=== PATIENT | female | born 1980 | race Caucasian/White ===

== ENCOUNTER 2020-09-17 11:30 | Emergency (ER) | payer BC ==
[~2020-09-17] VITALS: Ht 172.7 cm; Wt 95.8 kg
--- NOTE | 2020-09-17 11:59 | ED Cough/URI ---
General Chief Complaint: Cough/Cold/Flu Symptoms Stated Complaint: SOB | COUGHING Source: patient Exam Limitations: no limitations History of Present Illness Date Seen by Provider: Sep 17, 2020 Time Seen by Provider: 11:48 Initial Comments 40-year-old female presents with complaint of shortness of air for the past 3 hours. States that she was eating a smoothie from a local establishment and began to feel short of air shortly afterwards. She believes she may have had some soy protein, which she has an allergy to. She has taken 325 mg Benadryl tablets. She denies any face, lip, mouth or tongue swelling. She feels tightness in her chest without wheezing and persistent cough. She has had similar reactions in the past. 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 She does carry an EpiPen, although she has never had an episode of anaphylaxis. She denies any recent illness, fever chills or concern of COVID-19. Allergies and Home Medications Allergies Coded Allergies: cabbage (Verified Allergy, Unknown, 09/17/20) coconut (Verified Allergy, Unknown, 09/17/20) gluten (Verified Allergy, Unknown, 09/17/20) peanut (Verified Allergy, Unknown, 09/17/20) soy (Verified Allergy, Unknown, 09/17/20) squash (Verified Allergy, Unknown, 09/17/20) Uncoded Allergies: Chicken (Allergy, Unknown, 09/17/20) Dairy (Allergy, Unknown, 09/17/20) Home Medications Albuterol Sulfate 1 Puff Puff, 2 PUFF IH Q4H 1 PUFF = 90 MCG Prescribed by: JARAD TINEO on 09/17/20 1201 Patient Home Medication List Home Medication List Reviewed: Yes Review of Systems Review of Systems Constitutional: see HPI; No fever, No malaise, No weakness EENTM: no symptoms reported Respiratory: see HPI, cough; No hemoptysis, No orthopnea; short of breath; No stridor, No wheezing Cardiovascular: No chest pain, No edema, No palpitations Gastrointestinal: No abdominal pain, No nausea, No vomiting Musculoskeletal: No back pain, No joint pain Skin: No change in color, No lesions, No lumps, No rash Psychiatric/Neurological: Anxiety; Denies Headache, Denies Numbness, Denies Paresthesia, Denies Weakness Past Jzdzhlx-Gcktri-Gtbqep Hx Past Med/Social Hx: Reviewed Nursing Past Med/Soc Hx Physical Exam Vital Signs - First Documented 09/17/20 11:35 O2 Delivery Room Air Capillary Refill : Height: '" Weight: lbs. oz. kg; BMI Method: General Appearance: WD/WN, no apparent distress; No mild distress Eyes: Bilateral Eye Normal Inspection, Bilateral Eye PERRL, Bilateral Eye EOMI HEENT: PERRL/EOMI, normal ENT inspection, pharynx normal Neck: non-tender, full range of motion, supple, normal inspection Respiratory: chest non-tender, lungs clear, normal breath sounds, no respiratory distress, no accessory muscle use Cardiovascular: regular rate, rhythm, no edema, no gallop, no JVD Gastrointestinal: normal bowel sounds, non tender, soft, no organomegaly, no p ulsatile mass Extremities: normal range of motion, non-tender, no pedal edema Neurologic/Psychiatric: no motor/sensory deficits, alert, normal mood/affect, oriented x 3 Skin: normal color, warm/dry; No cyanosis, No diaphoresis, No ecchymosis, No mottled, No pallor, No rash Progress/Results/Core Measures Suspected Sepsis SIRS Temperature: Pulse: Respiratory Rate: Blood Pressure / Mean: Results/Orders My Orders Orders - JARAD TINEO DO Chest 1 View Ap/Pa Only (09/17/20 11:51) Albuterol/Ipra Inhalation Soln (Duoneb I (09/17/20 12:00) Svn Small Volume Nebulizer (09/17/20 11:52) Medications Given in ED Current Medications Medications Dose Ordered Sig/Oli Route Start Time Stop Time Status Last Admin Dose Admin Albuterol/ Ipratropium 3 ml ONCE ONCE INH 09/17/20 12:00 09/17/20 12:01 DC 09/17/20 12:12 3 ML Vital Signs/I&O 09/17/20 11:35 O2 Delivery Room Air Capillary Refill : Departure Impression Primary Impression: Allergic reaction Qualified Codes: T78.40XA - Allergy, unspecified, initial encounter Disposition: HOME, SELF-CARE Condition: Improved Departure-Patient Inst. Decision time for Depature: 12:12 Referrals: NO,LOCAL PHYSICIAN (PCP/Family) Primary Care Physician Patient Instructions: Allergic Reaction ED Add. Discharge Instructions: Call your electron gun assembler and or PCP to arrange for follow up care. Use your inhaler as needed for persistent cough or SOA. Continue your allergy medication as instructed All discharge instructions reviewed with patient and/or family. Voiced understanding. Scripts Albuterol Sulfate (PROAIR HFA) 1 Puff Puff 2 PUFF IH Q4H for Cough, #1 PUFF 1 Refill 1 PUFF = 90 MCG Prov: JARAD TINEO DO 09/17/20 JARAD TINEO DO Sep 17, 2020 11:59
[2020-09-17] MEDS ORDERED: RT-ALBUTEROL/IPRATROPIUM 3 ML (DUONEB) VIAL INH ONE (12:00)
[2020-09-17] MEDS ORDERED: RT-ALBUINH IH (12:01)
[2020-09-17 12:20] VITALS: BP 122/78
--- NOTE | 2020-09-17 12:38 | Diagnostic Imaging Report ---
PATIENT HISTORY: Shortness of breath. TECHNIQUE: Single frontal view of the chest. COMPARISON: None FINDINGS: The lung volumes are normal. No focal consolidation is seen. No large pleural effusion or pneumothorax is seen. The cardiomediastinal silhouette is normal in size and contour. No acute osseous abnormality is seen. IMPRESSION: No acute pulmonary abnormality seen. Dictated by: Dictated on workstation # [id number]
== END 2020-09-17 12:20 | disposition home or self-care (01) ==
LOC: EDUNIT# 11:30 → ER FS 11:33
DX: T78.1XXA Other adverse food reactions, not elsewhere classified, initial encounter (principal)
CPT/HCPCS: 71045

== ENCOUNTER → 2020-11-19 | Outpatient (CLI) | payer BC ==
[~2020-11-19] MED LIST: RT-ALBUINH IH
--- NOTE | 2020-11-19 15:33 | Diagnostic Imaging Report ---
PROCEDURE: US Thyroid. TECHNIQUE: Multiple Real-time grayscale images were obtained of the thyroid in various projections. INDICATION: Mao's thyroiditis. COMPARISON: 01/21/2014. FINDINGS: The right lobe of the thyroid gland measures 4.5 x 1.3 x 1.3 cm. It demonstrates a diffusely heterogeneous echotexture, similar to prior imaging from 2013, without discrete nodule. The left lobe of the thyroid gland measures 4.9 x 1.2 x 1.2 cm. It demonstrates diffusely heterogeneous echotexture throughout, similar to 2014, without discrete nodule. The isthmus is mildly thickened and heterogeneous without discrete nodule. IMPRESSION: Diffusely heterogeneous thyroid gland without discrete nodule. The findings may relate to sequelae of prior thyroiditis. The thyroid gland is not enlarged. The right lobe of the thyroid gland has slightly decreased in size since the prior exam in 2013. Dictated by: Dictated on workstation # [id number]
== END ==
LOC: RAD 14:20
PROVIDERS: ATTEND Nurse Practitioner Family
DX: E06.3 Autoimmune thyroiditis (principal)
CPT/HCPCS: 76536

== ENCOUNTER → 2020-12-22 | Outpatient (CLI) | payer BC ==
[~2020-12-22] MED LIST changes: +CATHETER FLUSH 10 ML SYR IV PRN; +HOLD METFORMIN - RECEIVED CONTRAST 20 ML VIAL IV SCH; +IOHEXOL 350 MG/ML 100 ML (OMNIPAQUE 350) VIAL IV ONE; +NS 100 ML (IVPB) BAG IV ONE
--- NOTE | 2020-12-22 18:35 | Diagnostic Imaging Report ---
CLINICAL INDICATION: Patient with dysphagia and anterior cervical lymphadenopathy. EXAM: Axial CT scan of the neck soft tissue performed with 75 mL of Omnipaque 350 IV contrast. Sagittal and coronal reformatted images were created. COMPARISON: Ultrasound of the neck soft tissue dated 11/19/2020. Barium swallow study/esophagram dated 05/02/2014. FINDINGS: The nasopharynx, oropharynx, hypopharynx, laryngeal soft tissue structures are unremarkable. Visualized portions of the lower cavity, tongue, sublingual, and submandibular regions are unremarkable. There is no lymphadenopathy. There is no fluid collection or abnormal fat stranding seen. Thyroid gland shows no significant abnormality is visualized. Thyroid gland is better seen on ultrasound than CT scan. Limited visualization of intracranial structures are unremarkable. Limited visualization of the orbits and globes are unremarkable. There is minimal mucosal thickening involving the right maxillary sinus and ethmoid sinus. Mastoid air cells are clear. Visualized upper lung whitaker are clear. Cervical spine is unremarkable. IMPRESSION: 1: Unremarkable CT scan of the neck. There is no lymphadenopathy. If there is concern for thyroid abnormality, ultrasound would better evaluate. 2: There is mild paranasal sinus disease. Dictated by: Dictated on workstation # [id number]
== END ==
LOC: RAD 13:45
PROVIDERS: ATTEND Nurse Practitioner Family
DX: J32.9 Chronic sinusitis, unspecified (principal); R59.0 Localized enlarged lymph nodes
CPT/HCPCS: 70491

== ENCOUNTER → 2021-09-24 | Outpatient (CLI) | payer BC ==
[~2021-09-24] MED LIST changes: -CATHETER FLUSH 10 ML SYR IV PRN; -HOLD METFORMIN - RECEIVED CONTRAST 20 ML VIAL IV SCH; -IOHEXOL 350 MG/ML 100 ML (OMNIPAQUE 350) VIAL IV ONE; -NS 100 ML (IVPB) BAG IV ONE
--- NOTE | 2021-09-24 08:42 | Diagnostic Imaging Report ---
PROCEDURE: US Gallbladder. TECHNIQUE: Multiple Real-time grayscale images were obtained over the right upper quadrant in various projections. INDICATION: Right upper quadrant pain. FINDINGS: The liver is enlarged at 18.7 cm. There appears to be generalized increased echogenicity throughout the liver, consistent with hepatic steatosis. The portal vein is patent and shows normal direction of flow. No discrete liver mass is identified. The gallbladder is without stones or sludge. No wall thickening or biliary ductal dilatation is seen. The pancreas is obscured by bowel gas. The aorta is nonaneurysmal. The IVC is patent. The right kidney is without calculus or hydronephrosis. There is no ascites. IMPRESSION: 1. Hepatomegaly and hepatic steatosis. 2. No evidence of cholelithiasis or acute cholecystitis. Dictated by: Dictated on workstation # [id number]
== END ==
LOC: RAD 07:15
PROVIDERS: ATTEND Nurse Practitioner Family
DX: K76.0 Fatty (change of) liver, not elsewhere classified (principal)
CPT/HCPCS: 76705

== ENCOUNTER → 2021-10-04 | Outpatient (CLI) | payer BC ==
[~2021-10-04] MED LIST changes: +CATHETER FLUSH 10 ML SYR IVP PRN
--- NOTE | 2021-10-04 12:03 | Diagnostic Imaging Report ---
INDICATION: Right upper quadrant pain. EXAMINATION: HIDA scan, 10/04/2021. FINDINGS: After an uneventful administration of 5.36 mCi of technetium-99m Choletec intravenously, subsequent imaging was performed. There is prompt homogeneous uptake throughout the liver. The gallbladder and small bowel are seen within 30 minutes. At 30 minutes, Ensure was administered orally with continued imaging performed. Ejection fraction calculated at 18%. IMPRESSION: 1. No obstructive process. 2. Low ejection fraction which suggests gallbladder dyskinesia or chronic cholecystitis. Correlate with symptoms. Dictated by: Dictated on workstation # [id number]
== END ==
LOC: CARD 10:00
PROVIDERS: ATTEND Nurse Practitioner Family
DX: R10.11 Right upper quadrant pain (principal)
CPT/HCPCS: 78227; A9537

== ENCOUNTER 2021-10-07 07:01 | Day surgery (SDC) | payer BC ==
[2021-10-07] VITALS (12 sets, daily range): BP systolic 101–149; BP diastolic 55–87
[~2021-10-07] VITALS: Ht 172.7 cm; Wt 109.1 kg
[~2021-10-07 07:01] MED LIST changes: -CATHETER FLUSH 10 ML SYR IVP PRN
[2021-10-07] MEDS ORDERED: ceFAZolin 2 GM IV Premixed 50 ML IV ONE (07:15)
[2021-10-07] MEDS ORDERED: LACTATED RINGERS 1,000 ML IV PRN (07:15)
[2021-10-07] MEDS ORDERED: MIDAZOLAM 2 MG/2 ML (VERSED) VIAL ONE (07:37)
[2021-10-07] MEDS ORDERED: ROCURONIUM 10 MG/ML 5 ML SYRINGE IV ONE (07:37)
[2021-10-07] MEDS ORDERED: fentaNYL INJ 100 MCG/2 ML AMP ONE ×2 (07:37→09:15)
[2021-10-07] MEDS ORDERED: proPOfol 200 MG/20 ML (DIPRIVAN) VIAL IV ONE (07:37)
[2021-10-07] MEDS ORDERED: NEOSTIGMINE 3 MG/3 ML VIAL ONE (07:37)
[2021-10-07] MEDS ORDERED: ONDANSETRON 4 MG/2 ML (SDV) Z0FRAN ONE (07:37)
[2021-10-07] MEDS ORDERED: GLYCOPYRROLATE 0.2 MG/ML (ROBINUL) 2 ML VIAL ONE (07:37)
[2021-10-07] MEDS ORDERED: LIDOCAINE PF 2% 5 ML (XYLOCAINE) VIAL ONE (07:37)
[2021-10-07] MEDS ORDERED: LIDOCAINE/EPI 2% 1:200,00 (XYLOCAINE) 20 ML VIAL ONE (07:44)
[2021-10-07] MEDS ORDERED: ONDANSETRON 4 MG/2 ML (SDV) Z0FRAN IV ONE (07:45)
[2021-10-07] MEDS ORDERED: FAMOTIDINE 20MG/2ML IV (PEPCID) IV ONE (07:45)
[2021-10-07] MEDS ORDERED: HYDROmorphone 2 MG/ML VIAL (DILAUDID) IV ONE (07:45)
[2021-10-07] MEDS ORDERED: ONDANSETRON 4 MG/2 ML (SDV) Z0FRAN IVP PRN (07:45)
[2021-10-07] MEDS ORDERED: morphine INJ 10 MG/ML 1ML (SYR OR VIAL) IVP ONE (07:45)
[2021-10-07] MEDS ORDERED: KRIL1CAP18 PO (07:46)
[2021-10-07] MEDS ORDERED: LEVO5TAB12 PO (07:46)
[2021-10-07] MEDS ORDERED: CITA40TA13 PO (07:46)
[2021-10-07] MEDS ORDERED: LEVO88CA4 PO (07:46)
[2021-10-07] MEDS ORDERED: METF-397 PO (07:46)
[2021-10-07] MEDS ORDERED: LIOT5TAB10 PO (07:46)
[2021-10-07] MEDS ORDERED: ASCO1TAB42 PO (07:46)
[2021-10-07] MEDS ORDERED: VIT1CAPS PO (07:46)
--- NOTE | 2021-10-07 07:53 | Progress Note-Pre Operative ---
Pre-Operative Progress Note H&P Reviewed The H&P was reviewed, patient examined and no changes noted. Date Seen by Provider: Oct 07, 2021 Time Seen by Provider: 07:45 Date H&P Reviewed: Oct 07, 2021 Time H&P Reviewed: 07:45 Pre-Operative Diagnosis: biliary dyskinesia PATI MONTES DE OCA DO Oct 07, 2021 07:53
[2021-10-07] MEDS ORDERED: SEVOFLURANE (ULTANE) 15 ML INHAL SOLN ONE (09:03)
--- NOTE | 2021-10-07 09:11 | Progress Note-Post Operative ---
Post-Operative Progess Note Surgeon (s)/Panelbeater (s) Surgeon PATI MONTES DE OCA DO Panelbeater: Dr. Carrion to assist in retraction dissection and closure. Pre-Operative Diagnosis biliary dyskinesia Post-Operative Diagnosis same Procedure & Operative Findings Date of Procedure 10/07/21 Procedure Performed/Findings PROCEDURE: Laparoscopic cholecystectomy with intraoperative cholangiogram. COMPLICATIONS: None. PROCEDURE: The patient was taken to the operating suite and was prepped and draped in sterile fashion. A surgical pause was performed. Just superior to the umbilicus, a 12 mm incision was made. Dissection was taken down to the fascia, which was then scored and grasped with a Andrade and the abdomen was then entered. A 0 Vicryl suture was placed in a [id number] fashion and a Avila trocar was placed and secured. Pneumoperitoneum was achieved. A 5mm trochar place in the subxyphoid and 2 in the right upper quadrant. The gallbladder was then grasped and elevated. Adhesions to the gallbladder present and taken down with blunt and cautery dissection. The cystic duct, and cystic artery were then dissected out. Clip was placed on the distal portion of the cystic duct which was then partially transected. An arrow catheter was inserted into the duct. The cholangiogram was then performed. No filing defects and contrast made its way into the duodenum. Catheter removed. Clips were placed on proximal portion of the cystic duct and then the duct was then transected. Clips were placed along the proximal and distal portion of the cystic artery which was then transected. Hook cautery was used to dissect the gallbladder from the gallbladder fossa achieving hemostasis. The gallbladder was placed in an Endobag and removed through the 12 mm trocar site. The abdomen was then reinspected. Copious amounts of irrigation were used to irrigate the abdomen and there were no signs of active bleeding. Hemostasis had been achieved. The 12 mm fascial defect was then closed with 0 Vicryl suture that had been placed in a [id number] fashion. The abdomen was then desufflated, the trocars were removed. The abdomen was then washed and dried. The skin was then closed using 4-0 Monocryl in a subcuticular fashion. The abdomen was washed and dried and Skin Affix was place over incisions. Patient tolerated the procedure well without any complications and was taken to the recovery room in stable condition. Anesthesia Type general Estimated Blood Loss Estimated blood loss (mL): minimal Specimens/Packing Specimens Removed gallbladder PATI MONTES DE OCA DO Oct 07, 2021 09:11
[2021-10-07] MEDS ORDERED: ACHD5005 PO (09:13)
[2021-10-07] MEDS ORDERED: DOCU-143 PO (09:13)
--- NOTE | 2021-10-07 09:16 | Discharge Inst-Simple/Standard ---
Discharge Inst-Standard Discharge Medications New, Converted or Re-Newed RX: Transmitted to Pharmacy Patient Instructions/Follow Up Plan of Care/Instructions/FU: 2 weeks Jassi Activity as Tolerated: No Discharge Diet: Regular Diet Other Inst to Patient Follow up Appt: Make appointment for 2 weeks. Instructions: No lifting greater than 10 pounds. No strenuous activity. May shower in 24 hours, no tub bath or soaking. Use incentive spirometer at home as directed. No Smoking Skin/Wound Care: You have special glue over incision, it will fall off on it's own. Symptoms to Report: Appetite Changes, Extremity Discoloration, Numbness/Tingling, Swelling Increased, Bleeding Excessive, Eyesight Changes, Pain Increased, Urine Color Change, Constipation(Persistent), Fever over 101 degree F, Pain/Pressure in chest, Urinating Difficulty, Cough Up/Vomit Blood, Heart Beat Irreg/Pounding, Pain/Pressure in jaw, Vaginal Bleeding Increase, Cramps in feet or legs, Lightheadedness, Pain/Pressure in shoulder, Diarrhea(Persistent), Memory Changes Suddenly, Questions/Concerns, Weight gain consecutive days, Dizziness/Fainting, Nausea/Vomiting, Shortness of Breath, Weight gain over 2 pounds. If eyes or skin turn yellow notify physician. If questions or concerns contact your physician Or seek help at emergency department. PATI MONTES DE OCA DO Oct 07, 2021 09:16
[2021-10-07] MEDS ORDERED: SUGAMMADEX 500 MG/5 ML VIAL (BRIDION) IV ONE (09:31)
--- NOTE | 2021-10-07 09:40 | Diagnostic Imaging Report ---
INDICATION: Biliary dyskinesia.. TECHNIQUE: Single spot film along with a cine loop intraprocedural images laparoscopic cholangiogram FINDINGS/ IMPRESSION: The hospital radiology department provided fluoroscopic imaging in support of an interventional procedure. A radiologist was not present. Please reference the operating provider's procedure note. There is cannulation of extrahepatic biliary tree injection contrast. The low common bile duct fills immediately with flow into the duodenum. There is subsequent reflux into the remainder of the extra hepatic biliary tree and central hepatic branches. The biliary tree is non-dilated and there is no persistent intraluminal filling defect. Fluoroscopy Time: 22 seconds Dictated by: Dictated on workstation # [id number]
[2021-10-07] MEDS ORDERED: morphine INJ 10 MG/ML 1ML (SYR OR VIAL) ONE (09:55)
[2021-10-07] MEDS ORDERED: HYDROcodone/APAP 5 MG/325 MG (LORTAB) TAB ONE (10:43)
[2021-10-07] MEDS ORDERED: HYDROcodone/APAP 5 MG/325 MG (LORTAB) TAB PO ONE (10:45)
--- NOTE | 2021-10-11 12:36 | Anesthesia-General Post-Op ---
General Patient Condition Mental Status/LOC: Same as Preop Cardiovascular: Satisfactory Nausea/Vomiting: Absent Respiratory: Satisfactory Pain: Controlled Complications: Absent Post Op Complications Complications None Follow Up Care/Instructions Patient Instructions None needed. Anesthesia/Patient Condition Patient Condition Patient was seen on 10-07-21 at approximately 1000 and she was doing well, no complaints, stable vital signs, no apparent adverse anesthesia problems. ESTEFANIA LOU DO Oct 11, 2021 12:36
== END 2021-10-07 11:40 | disposition home or self-care (01) ==
LOC: SDC 07:01
PROVIDERS: ATTEND Surgery
DX: K81.1 Chronic cholecystitis (principal); K82.8 Other specified diseases of gallbladder; E66.9 Obesity, unspecified; Z68.37 Body mass index [BMI] 37.0-37.9, adult
CPT/HCPCS: 76000; 84703; 87081